=== PATIENT | male | born 1950 | race Hispanic/Latino ===

== ENCOUNTER 2020-08-19 18:21 | Inpatient (IN) | payer OTHER, SELFPAY ==
--- NOTE | 2020-08-19 19:34 | RAD REPORT ---
EXAM DESCRIPTION: CT - CTHCSPWOC - 08/19/2020 7:23 pm CLINICAL HISTORY: Trauma, head and neck injury. fall COMPARISON: <Comparisons> TECHNIQUE: Axial 5 mm thick images of the head were obtained. Axial 2 mm thick images of the cervical spine were obtained with sagittal and coronal reconstruction images generated and reviewed. All CT scans are performed using dose optimization technique as appropriate and may include automated exposure control or mA/KV adjustment according to patient size. FINDINGS: CT HEAD WITHOUT CONTRAST: No acute hemorrhage, hydrocephalus or extra-axial collection is identified.Mild generalized brain atr ophy is present with moderate periventricular and deep white matter chronic microvascular ischemic ch anges.No areas of brain edema or midline shift. The paranasal sinuses and mastoids are clear.The calvarium is intact. CT CERVICAL SPINE WITHOUT CONTRAST: No fracture or subluxation.3-4 mm degenerative anterolisthesis C4 on 5 is present. Disc thinning with posterior osteophyte is present at C5-6 C6-7. No prevertebral soft tissues swelling is identified. Heavy atherosclerosis of both carotid bulbs noted. 4 cm cavitary lesion is noted in the right apex. IMPRESSION: No acute intracranial or cervical spine findings. Moderate mid and lower cervical degenerative changes. 4 cm cavitary lesion in the right apex. This can be seen cases of malignancy or prior tuberculosis in fection.
[2020-08-19 20:15] LABS: Absolute Lymphocytes (CBC) 0.5 K/uL (0.7-4.9); Basophils % 0.8 % (0-1.3); Hematocrit 28.5 % (39.6-49.0); Lymphocytes % 16.6 % (15.3-44.8)
[2020-08-19 20:19] LABS: Barbiturates NEGATIVE (NEGATIVE); Benzodiazepines NEGATIVE (NEGATIVE); Cocaine NEGATIVE (NEGATIVE); METHAMPHETAM NEGATIVE (NEGATIVE); Methadone NEGATIVE (NEGATIVE); Opiates NEGATIVE (NEGATIVE); Phencyclidine NEGATIVE (NEGATIVE); THC Cannibis NEGATIVE (NEGATIVE)
[2020-08-19 20:19] LABS: Protime INR 1.21
[2020-08-19 20:36] LABS: Urine Blood NEGATIVE (NEG); Urine Glucose NEGATIVE (NEG); Urine Specific Gravity 1.025 (1.005-1.030)
[2020-08-19 20:37] LABS: Urine Protein NEGATIVE (NEG); Urine pH 5.5 (5.0-7.0)
[2020-08-19 21:11] LABS: ALT/SGPT 88 U/L (12-78); AST/SGOT 76 U/L (15-37); Albumin 3.1 g/dL (3.4-5.0); Alkaline Phosphatase 206 U/L (45-117); BUN Blood Urea Nitrogen 24 mg/dL (7-18); Bicarbonate 21 mmol/L (21-32); Bilirubin Direct 0.6 mg/dL (0-0.2); Bilirubin Total 1.2 mg/dL (0.2-1.0); Glucose Level 96 mg/dL (74-106); Potassium 3.7 mmol/L (3.5-5.1); Protein, Total 7.9 g/dL (6.4-8.2); Sodium Level 145 mmol/L (136-145)
[2020-08-19] MEDS ORDERED: NA CHLORIDE 0.9% 1,000 ML ONE (21:49)
[2020-08-19 21:56] LABS: Troponin (Emerg Dept Use Only) < 0.02 ng/mL (0.0-0.045)
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
[2020-08-20] MEDS ORDERED: LACTULOSE 20 GM/30 ML UCUP ONE (03:30)
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
[2020-08-20 04:56] VITALS: BMI 22.6
[2020-08-20] MEDS ORDERED: ONDANSETRON 4 MG/2 ML VIAL IV PRN (05:04)
[2020-08-20] MEDS: NA CHLORIDE 0.9% 1,000 ML IV SCH ×2 (05:04→08:38)
--- NOTE | 2020-08-20 07:30 | RAD REPORT ---
EXAM DESCRIPTION: Mercedes Single View08/19/2020 10:14 pm CLINICAL HISTORY: Chest pain COMPARISON: none FINDINGS: 5 centimeter cavitary mass right upper lobe. Left lung appears clear of acute infiltrate. The heart is normal size IMPRESSION: 5 centimeter cavitary mass right upper lobe may represent neoplasm or infection
[2020-08-20] MEDS: LACTULOSE 20 GM/30 ML UCUP PO SCH ×3 (08:39→21:19)
[2020-08-20] MEDS: FOLIC ACID 1 MG TABLET PO SCH (08:39)
[2020-08-20] MEDS ORDERED: ENOXAPARIN 40 MG/0.4 ML SQ SCH (09:00)
[2020-08-20] MEDS ORDERED: PNEUMOCOCCAL VACCINE 0.5 ML IMVAC ONE (09:00)
[2020-08-20] MEDS ORDERED: INFLUENZA VACCINE (for 3y+) 0.5 ML DOSE IMVAC ONE (09:00)
[2020-08-20 09:45] LABS: Absolute Lymphocytes (CBC) 0.5 K/uL (0.7-4.9); Basophils % 0.8 % (0-1.3); Hematocrit 30.2 % (39.6-49.0); Lymphocytes % 19.3 % (15.3-44.8); Protime INR 1.16; RBC Red Blood Cell Count 3.06 M/uL (4.33-5.43)
--- NOTE | 2020-08-20 10:58 | EKG ---
Test Date: 2020-08-19 Test Time: 19:14:09 Abrasive Wheel Molder: FERN MEASUREMENT RESULTS: Intervals: Rate: 96 CA: 136 QRSD: 90 QT: 370 QTc: 467 [place]: P: 36 CA: 136 QRS: 41 T: 6 INTERPRETIVE STATEMENTS: Normal sinus rhythm Normal ECG No previous ECG available for comparison Electronically Signed On 08-20-20 10:56:27 TEXTILE CONVERTER by Fredrick Johnson
[2020-08-20 12:05] LABS: Albumin 3.2 g/dL (3.4-5.0); Bilirubin Total 1.3 mg/dL (0.2-1.0); Ferritin 375.7 ng/mL (26-388); Folic Acid, (Folate) 15.7 ng/mL (3.1-17.5); Magnesium 2.3 mg/dL (1.8-2.4); Phosphorus 3.4 mg/dL (2.5-4.9); Potassium 3.5 mmol/L (3.5-5.1); Protein, Total 8.1 g/dL (6.4-8.2); Thyroid Stimulating Hormone 3.31 uIU/mL (0.360-3.740)
--- NOTE | 2020-08-20 14:16 | P.PN ---
Subjective Date of Service: 08/20/20 Primary Care Provider: None Chief Complaint: Toxic metabolic encephalopathy Subjective: Other (Patient overall stable. Patient is a poor historian. Patient is homeless.) Physical Examination - Vital Signs Temperature: 98.7 F Blood Pressure: 140/67 Pulse: 82 Respirations: 16 Pulse Ox (%): 97 - Physical Exam General: Alert, Cooperative, Disheveled, Other (Patient is homeless. He appears not well kept.) HEENT: Atraumatic Neck: Supple Respiratory: Clear to auscultation bilaterally Cardiovascular: Normal pulses, Regular rate/rhythm Gastrointestinal: No tenderness, No masses, No rebound, No guarding Integumentary: Tenderness/swelling (1 plus edema to LE) Neurological: Normal speech, Normal strength at 5/5 x4 extr, Normal tone - Studies Laboratory Data (last 24 hrs) 08/19/20 19:40: PT 14.2 H, INR 1.21, APTT 28.7 08/19/20 19:40: Total Bilirubin Cancelled, AST Cancelled, ALT Cancelled, Alkaline Phosphatase Cancelled 08/19/20 19:40: WBC 2.9 L, Hgb 10.2 L, Hct 28.5 L, Plt Count 94 L 08/19/20 19:40: Sodium 145, Potassium 3.7, BUN 24 H, Creatinine 0.97, Glucose 96, Total Bilirubin 1.2 H, AST 76 H, ALT 88 H, Alkaline Phosphatase 206 H Medications List Reviewed: Yes Assessment & Plan Discharge Plan: Home Plan to discharge in: Greater than 2 days Physician Review Additional Text: Assessment Toxic metabolic/hepatic encephalopathy secondary to alcoholic cirrhosis of the liver 5.5 x 3.1 x 3.0 cm cavitary lesion in the apex of the right lung with additional satellite nodules Pancytopenia likely secondary to Cirrhosis Circumferential thickening of the ascending colon Large fat containing right inguinal hernia with right hydrocele Plan Toxic metabolic/hepatic encephalopathy secondary to alcoholic cirrhosis of the liver: Continue lactulose. Will Dc IV fluids. Will provide Lasix. Will need to monitor for DTs. Provide DVT prophylaxis. Will place parameters. Patient with multiple medical issues including cavitary lesion to the right lung likely TB. This will need to be further evaluated. Will continue monitor closely. Will discuss with 7th grade social studies teacher about plan of care. Order physical therapy. 5.5 x 3.1 x 3.0 cm cavitary lesion in the apex of the right lung with additional satellite nodules: Case discussed with pulmonology. Patient likely has TB. Workup for TB in process. HIV, hepatitis panel pending. Will monitor closely. Patient placed in isolation. Pancytopenia likely secondary to Cirrhosis: Continue to monitor CBC, transfuse for hemoglobin less than 7. No signs of active bleeding at this time. Circumferential thickening of the ascending colon: Given additional constellation of findings on CT scan and lack of abdominal pain or any acute symptoms this is likely malignant. No acute symptoms noted, patient will need to have colonoscopy on an outpatient basis for further evaluation. No abdominal complaints noted. Will monitor this closely. Large fat containing right inguinal hernia with right hydrocele: Stable at this time. Patient is aware that he has a hernia, states that this is not causing any pain. CT states no signs of incarceration or bowel involvement in the hernia defect. Continue to monitor. Time Spent Managing Pts Care (In Minutes): 55
[2020-08-20] MEDS ORDERED: POTASSIUM CL SA 10 MEQ TAB PO ONE (14:42)
--- NOTE | 2020-08-20 15:45 | P.PN ---
Subjective Date of Service: 08/20/20 Primary Care Provider: None Chief Complaint: Toxic metabolic encephalopathy Physical Examination - Vital Signs Temperature: 98.7 F Blood Pressure: 140/67 Pulse: 82 Respirations: 16 Pulse Ox (%): 97 - Studies Laboratory Data (last 24 hrs) 08/19/20 19:40: PT 14.2 H, INR 1.21, APTT 28.7 08/19/20 19:40: Total Bilirubin Cancelled, AST Cancelled, ALT Cancelled, Alkaline Phosphatase Cancelled 08/19/20 19:40: WBC 2.9 L, Hgb 10.2 L, Hct 28.5 L, Plt Count 94 L 08/19/20 19:40: Sodium 145, Potassium 3.7, BUN 24 H, Creatinine 0.97, Glucose 96, Total Bilirubin 1.2 H, AST 76 H, ALT 88 H, Alkaline Phosphatase 206 H Medications List Reviewed: Yes Assessment & Plan Physician Review Additional Text: Assessment Toxic metabolic/hepatic encephalopathy secondary to alcoholic cirrhosis of the liver 5.5 x 3.1 x 3.0 cm cavitary lesion in the apex of the right lung with additional satellite nodules Pancytopenia likely secondary to Cirrhosis Circumferential thickening of the ascending colon Large fat containing right inguinal hernia with right hydrocele Plan Toxic metabolic/hepatic encephalopathy secondary to alcoholic cirrhosis of the liver: Continue lactulose. Will Dc IV fluids. Will provide Lasix. Will need to monitor for DTs. Provide DVT prophylaxis. Will place parameters. Patient with multiple medical issues including cavitary lesion to the right lung likely TB. This will need to be further evaluated. Will continue monitor closely. Will discuss with perinatal social worker about plan of care. Order physical therapy. 5.5 x 3.1 x 3.0 cm cavitary lesion in the apex of the right lung with additional satellite nodules: Case discussed with pulmonology. Patient likely has TB. Workup for TB in process. HIV, hepatitis panel pending. Will monitor closely. Patient placed in isolation. Pancytopenia likely secondary to Cirrhosis: Continue to monitor CBC, transfuse for hemoglobin less than 7. No signs of active bleeding at this time. Circumferential thickening of the ascending colon: Given additional constellation of findings on CT scan and lack of abdominal pain or any acute symptoms this is likely malignant. No acute symptoms noted, patient will need to have colonoscopy on an outpatient basis for further evaluation. No abdominal complaints noted. Will monitor this closely. Large fat containing right inguinal hernia with right hydrocele: Stable at this time. Patient is aware that he has a hernia, states that this is not causing any pain. CT states no signs of incarceration or bowel involvement in the h ernia defect. Continue to monitor.
[2020-08-20] MEDS ORDERED: FUROSEMIDE 40 MG TABLET PO SCH (17:00)
[2020-08-20] MEDS: FAMOTIDINE 20 MG TAB PO SCH (21:19)
[2020-08-21 07:42] LABS: Absolute Lymphocytes (CBC) 0.7 K/uL (0.7-4.9); Basophils % 1.3 % (0-1.3); Hematocrit 29.3 % (39.6-49.0); Lymphocytes % 25.3 % (15.3-44.8); MPV 8.3 fL (7.6-11.3); RBC Red Blood Cell Count 2.97 M/uL (4.33-5.43)
[2020-08-21 07:57] LABS: ALT/SGPT 96 U/L (12-78); AST/SGOT 91 U/L (15-37); Albumin 2.9 g/dL (3.4-5.0); Alkaline Phosphatase 129 U/L (45-117); BUN Blood Urea Nitrogen 13 mg/dL (7-18); Bicarbonate 22 mmol/L (21-32); Bilirubin Total 1.5 mg/dL (0.2-1.0); Glucose Level 93 mg/dL (74-106); Magnesium 2.1 mg/dL (1.8-2.4); Phosphorus 3.4 mg/dL (2.5-4.9); Potassium 3.7 mmol/L (3.5-5.1); Protein, Total 7.4 g/dL (6.4-8.2); Sodium Level 142 mmol/L (136-145)
[2020-08-21 08:48] LABS: Anisocytosis 1+; Blood Morphology Comment NOTED (NOT SEEN); Burr Cells FEW; Macrocytosis 1+; Platelet Estimate DECR; White Blood Cell Scan OK (OK)
[2020-08-21] MEDS ORDERED: FUROSEMIDE 40 MG TABLET PO SCH (09:00)
--- NOTE | 2020-08-21 09:02 | P.PN ---
Subjective Date of Service: 08/21/20 Primary Care Provider: None Chief Complaint: Toxic metabolic encephalopathy Subjective: Other (Patient feels better.) Physical Examination - Vital Signs Temperature: 97.8 F Blood Pressure: 124/58 Pulse: 80 Respirations: 18 Pulse Ox (%): 100 - Physical Exam General: Alert, In no apparent distress, Oriented x3, Cooperative, Disheveled HEENT: Atraumatic Neck: Supple Respiratory: Clear to auscultation bilaterally, Normal air movement Cardiovascular: Normal pulses, Regular rate/rhythm Gastrointestinal: Normal bowel sounds, Soft and benign, Non-distended, No tenderness, No masses, No rebound, No guarding Neurological: Normal speech, Normal strength at 5/5 x4 extr, Normal tone, Normal affect - Studies Laboratory Data (last 24 hrs) 08/19/20 19:40: Sodium 145, Potassium 3.7, BUN 24 H, Creatinine 0.97, Glucose 96, Total Bilirubin 1.2 H, AST 76 H, ALT 88 H, Alkaline Phosphatase 206 H Medications List Reviewed: Yes Assessment & Plan Discharge Plan: Home Plan to discharge in: Greater than 2 days Physician Review Additional Text: Assessment Toxic metabolic/hepatic encephalopathy secondary to alcoholic cirrhosis of the liver 5.5 x 3.1 x 3.0 cm cavitary lesion in the apex of the right lung with additional satellite nodules Pancytopenia likely secondary to Cirrhosis Circumferential thickening of the ascending colon Large fat containing right inguinal hernia with right hydrocele Plan Toxic metabolic/hepatic encephalopathy secondary to alcoholic cirrhosis of the liver: Patient appears to be back to his baseline. Continue lactulose to maintain 2-3 bowel movements per day. Patient on Aldactone. Continue DVT prophylaxis. Will monitor for DTs. Patient with cavitary lesion. Patient currently being evaluated for TB. Patient in isolation. Will discuss further with pulmonology. Will discuss with pulmonology to determine discharge planning. Patient may need to be in the hospital until TB workup complete. Patient is high risk for TB. Patient will need to see GI as an outpatient to further address. Will need to discuss with social services assistant about plan of care and options at discharge. Patient is homeless. 5.5 x 3.1 x 3.0 cm cavitary lesion in the apex of the right lung with additional satellite nodules: will discuss case further with pulmonology. Patient currently being worked up for TB. May need to remain in the hospital on tell workup complete. Patient remains in respiratory isolation. Awaiting other lab. Pancytopenia likely secondary to Cirrhosis: Continue to monitor CBC, transfuse for hemoglobin less than 7. No signs of active bleeding at this time. Circumferential thickening of the ascending colon: No abdominal pain noted. No nausea and vomiting. Patient will require colonoscopy as an outpatient to further evaluate. No abnormalities. Patient will need GI evaluation as an outpatient to further address. Large fat containing right inguinal hernia with right hydrocele: Stable at this time. Patient is aware that he has a hernia, states that this is not causing any pain. CT states no signs of incarceration or bowel involvement in the hernia defect. Continue to monitor. Time Spent Managing Pts Care (In Minutes): 55
[2020-08-21] MEDS: ENOXAPARIN 40 MG/0.4 ML SQ SCH (09:24)
[2020-08-21] MEDS: LACTULOSE 20 GM/30 ML UCUP PO SCH ×3 (09:24→21:33)
[2020-08-21] MEDS: FAMOTIDINE 20 MG TAB PO SCH ×2 (09:24→21:32)
[2020-08-21] MEDS: FOLIC ACID 1 MG TABLET PO SCH (09:25)
[2020-08-21] MEDS: SPIRONOLACTONE 25 MG TABLET PO SCH (09:25)
--- NOTE | 2020-08-21 11:02 | RAD REPORT ---
EXAM DESCRIPTION: CT - Chest Abdomen Pelvis W Cont - 08/20/2020 6:56 am CLINICAL HISTORY: Abnormal chest x-ray. Abnormal liver function tests. COMPARISON: None. TECHNIQUE: Axial CT imaging of the chest, abdomen and pelvis performed without intravenous contrast. Reformatted coronal and sagittal images obtained. This exam was performed according to our departmental dose-optimization program which includes automa lori exposure control, adjustment of the mA and/or kV according to patient size and/or use of iterativ e reconstruction technique FINDINGS: CHEST HEART/VESSELS: Heart is normal in size. No pericardial fluid. Normal caliber thoracic aorta. T here is mild aorta atherosclerosis. Normal branch pattern of the arch vessels. Normal caliber francesco n pulmonary artery. There are significant coronary artery calcifications. MEDIASTINUM AND TL: Scattered lymph nodes throughout the mediastinum. Enlarged subcarinal node i s 1.9 x 1.4 x 2.9 cm. No filling defect within the central airways. There is an 8 mm air-filled o utpouching along the right upper tracheal wall at the thoracic inlet compatible with a tiny tracheoce le. LUNGS/PLEURA: There is a thick-walled irregular 5.5 x 3.1 x 3.0 cm mass in the right apex with a ranjit tral air-filled collection and an air-fluid level compatible with cavitation. There is adjacent claudia undglass attenuation anteriorly with a small collection of peripheral satellite nodules and minimal a djacent pleural thickening. The right upper lobe bronchi extend into this collection. There are s everal linear or nodular densities within the inferior aspect of the right middle lobe. Very faint groundglass peribronchial opacities within the anterior left upper lobe. Left lower lobe and right lower lobe subpleural atelectasis noted. There is no pneumothorax. No pleural fluid seen. There is no pneumothorax. CHEST WALL/SOFT TISSUES: Unremarkable thyroid. There is no axillary lymphadenopathy. The sternum is intact. There is mild thoracic spondylosis. There are several old posterior inferior right ri b fractures. ABDOMEN: LIVER/GALLBLADDER: Normal liver size. Slight hepatic nodularity due to cirrhosis. No mass or prabhakar iary dilatation. Gallbladder is contracted. Minimal pericholecystic edema. No gallstones. SPLEEN/PANCREAS: There is marked splenic enlargement, greater than 22 cm. Splenic index is 3386, n ormal less than 480. There is no perisplenic free fluid. There are numerous varices adjacent to t he gastric cardia. The pancreas appears normal. KIDNEYS/ADRENAL GLANDS: Normal adrenal glands. Normal right and left renal enhancement. There is mass effect upon the left kidney by the splenic enlargement. RETROPERITONEAL VESSELS/NODES: Significant abdominal aorta atherosclerosis. No aneurysm. Normal caliber inferior vena cava. Mesenteric vessels are well-opacified. BOWEL: There are numerous varices within the superior wall of the gastric cardia. Remaining stomac h appears normal. Small bowel loops are of normal caliber. Appendix is normal in the right lower quadrant. There is circumferential thickening of the ascending colon diffusely. Unremarkable deisi ining colon. MESENTERY/PERITONEUM: No ascites. There is no mesenteric adenopathy. There is mild central mesen teric edema. PELVIS: BLADDER/GENITAL ORGANS: Normal bladder. The prostate is 5.0 x 3.9 x 4.3 cm cyst. Dystrophic calc ification. No pelvic free fluid. PERITONEUM: There is a large fat-containing right inguinal hernia extending into the superior aspect of the right scrotal sac, approximately 10.4 x 4.1 x 5.1 cm with a moderate right hydrocele, not ful ly imaged. BONES AND SOFT TISSUES: There is mild degenerative anterior subluxation of L4 on L5 with significant left facet arthropathy. Intact bony pelvis. Normal hips. Significant vascular calcifications w ithin the right and left femoral vessels. IMPRESSION: 1. Thick-walled right apical cavitary mass with several satellite nodules. Mild asso ciated mediastinal lymphadenopathy. Differential includes tuberculosis, fungal disease, cavitary ne oplasm. 2. Faint peribronchial pneumonitis within the left upper lobe. Right middle lobe atelectasis with possible associated pneumonitis. Bilateral lower lobe atelectasis. Imaging features can be seen with viral pneumonia, though are nonspecific and can occur with a variet y of infectious and noninfectious processes. PneInd Reference: https://pubs.rsna.org/doi/full/10.1148/ryct.[email or web address] 3. Hepatic cirrhosis with massive splenomegaly and gastric varices indicative of portal hypertensio n. Portal vein appears patent on today's exam. 4. Mild pericholecystic edema is likely due to adjacent liver disease rather than acalculous cholec ystitis. No biliary dilatation. 5. Diffuse colitis involving the ascending colon. The possibility of infiltrative malignancy is a lso within the differential. Follow-up is warranted. 6. Large fat-containing right inguinal hernia with a right hydrocele, not fully imaged. No eviden ce of incarceration. No bowel involvement in the hernia defect. Electronically signed by: Sybil Castro DO 08/20/2020 1:07 AM PLATE PUT IN WORKER Due to temporary technical issues with the PACS/Fluency reporting system, reports are being signed by the in house radiologist without review as a courtesy to ensure prompt reporting. The interpreting r adiologist is fully responsible for the content of the report.
[2020-08-21 11:29] LABS: Protime INR 1.23
--- NOTE | 2020-08-21 11:39 | P.CNS ---
Date of Consult: 08/21/20 Reason for Consult: Cavitary pneumonia Primary Care Provider: None Chief Complaint: Cavitary pneumonia History of Present Illness: Patient is 69 years of age homeless man was found in the ditch by the police does not quite remember the incidence start drinking about a month ago history of cirrhosis of the liver pancytopenia he is feeling fine has some weight loss and memory loss Allergies No Known Allergies Allergy (Unverified 08/20/20 05:04) Home Medications: NK [No Home Meds] 08/20/20 - Past Medical/Surgical History Diabetic: No -: No known medical issues -: None Psychosocial/ Personal History: Pt is homeless, unemployed, currently staying in senior living. - Social History Alcohol use: No CD- Drugs: No Caffeine use: Yes Place of Residence: [facility] Review of Systems General: Weakness Physical Examination Temp Pulse Resp BP Pulse Ox 97.8 F 80 18 124/58 L 100 08/21/20 09:02 08/21/20 09:25 08/21/20 09:02 08/21/20 09:25 08/21/20 09:02 General: Alert, Oriented x3 Respiratory: Clear to auscultation bilaterally Cardiovascular: No edema, Regular rate/rhythm - Problems (1) Cavitary pneumonia Current Visit: Yes Status: Acute Plan: Patient is 69 years of age admitted with right upper lobe cavitary pneumonia patient has cirrhosis of the liver quit drinking about a month ago plays a some weight loss differential diagnosis includes cavitating tumor versus granulomatous lung disease the check sputum for AFB reason able to cough up will plan to do a bronchoscopy to rule out tuberculosis he has cirrhosis of the liver with hepatosplenomegaly chemistries reviewed pancytopenia vital signs otherwise stable oxygenation satisfactory HIV an antibody screen and pending meanwhile I had I have added Augmentin and doxycycline for the possibility of an infection
[2020-08-21] MEDS: DOXYCYCLINE 100 MG CAP PO SCH ×2 (12:45→21:32)
[2020-08-21] MEDS: AMOX/K CLAV 500 MG TAB PO SCH ×2 (12:45→21:32)
[2020-08-21] MEDS: THIAMINE HCL 100 MG TABLET PO SCH (12:45)
[2020-08-22] MEDS: FOLIC ACID 1 MG TABLET PO SCH (08:26)
[2020-08-22] MEDS: AMOX/K CLAV 500 MG TAB PO SCH ×2 (08:26→21:38)
[2020-08-22] MEDS: LACTULOSE 20 GM/30 ML UCUP PO SCH ×3 (08:26→21:38)
[2020-08-22] MEDS: DOXYCYCLINE 100 MG CAP PO SCH ×2 (08:26→21:39)
[2020-08-22] MEDS: SPIRONOLACTONE 25 MG TABLET PO SCH (08:27)
[2020-08-22] MEDS: FAMOTIDINE 20 MG TAB PO SCH ×2 (08:27→21:38)
[2020-08-22] MEDS: ENOXAPARIN 40 MG/0.4 ML SQ SCH (08:27)
[2020-08-22] MEDS: THIAMINE HCL 100 MG TABLET PO SCH (08:29)
--- NOTE | 2020-08-22 12:18 | P.PN ---
Subjective Date of Service: 08/22/20 Primary Care Provider: None Chief Complaint: Cavitary pneumonia Subjective: Improving, Doing well Physical Examination - Vital Signs Temperature: 99.1 F Blood Pressure: 121/58 Pulse: 74 Respirations: 18 Pulse Ox (%): 97 - Physical Exam General: Alert, In no apparent distress, Oriented x3, Cooperative HEENT: Atraumatic Neck: Supple Respiratory: Clear to auscultation bilaterally, Normal air movement Cardiovascular: Normal pulses, Regular rate/rhythm Gastrointestinal: Normal bowel sounds, No tenderness, No masses, No rebound, No guarding Musculoskeletal: No erythema, No tenderness, No warmth Integumentary: No tenderness/swelling, No erythema, No warmth, No cyanosis Neurological: Normal speech, Normal strength at 5/5 x4 extr, Normal tone, Normal affect - Studies Medications List Reviewed: Yes Assessment & Plan Discharge Plan: Home Plan to discharge in: 48 Hours Physician Review Additional Text: Assessment Toxic metabolic/hepatic encephalopathy secondary to alcoholic cirrhosis of the liver 5.5 x 3.1 x 3.0 cm cavitary lesion in the apex of the right lung with additional satellite nodules Pancytopenia likely secondary to Cirrhosis Circumferential thickening of the ascending colon Large fat containing right inguinal hernia with right hydrocele Plan Toxic metabolic/hepatic encephalopathy secondary to alcoholic cirrhosis of the liver: Patient appears to be back to his baseline. Continue lactulose to maintain 2-3 bowel movements per day. Patient on Aldactone. Continue DVT prophylaxis. Will monitor for DTs. Patient with cavitary lesion. Patient currently being evaluated for TB. Patient in isolation. Awaiting on sputum culture results. Patient may need to be in the hospital until TB workup complete. Patient is high risk for TB. Patient will need to see GI as an outpatient to further address. Will need to discuss with social work specialist about plan of care and options at discharge. Patient is homeless. 5.5 x 3.1 x 3.0 cm cavitary lesion in the apex of the right lung with additional satellite nodules: Await results on sputum culture. Pulmonology has patient on antibiotic therapy. Await further recommendations from pulmonology. Plan a care from pulmonology will determine on when patient can be best sent home. Pancytopenia likely secondary to Cirrhosis: Continue to monitor CBC, transfuse for hemoglobin less than 7. No signs of active bleeding at this time. Circumferential thickening of the ascending colon: No abdominal pain noted. No nausea and vomiting. Patient will require colonoscopy as an outpatient to further evaluate. No abnormalities. Patient will need GI evaluation as an outpatient to further address. Large fat containing right inguinal hernia with right hydrocele: Stable at this time. Patient is aware that he has a hernia, states that this is not causing any pain. CT states no signs of incarceration or bowel involvement in the hernia defect. Continue to monitor. Time Spent Managing Pts Care (In Minutes): 55
[2020-08-22] MEDS: ACETAMINOPHEN 500 MG TAB PO PRN (21:55)
--- NOTE | 2020-08-23 08:06 | P.PN ---
Subjective Date of Service: 08/23/20 Primary Care Provider: None Chief Complaint: Cavitary pneumonia Subjective: Doing well Physical Examination - Vital Signs Temperature: 98.0 F Blood Pressure: 136/69 Pulse: 86 Respirations: 16 Pulse Ox (%): 100 - Physical Exam General: Alert, In no apparent distress, Oriented x3, Cooperative HEENT: Atraumatic Neck: Supple Respiratory: Clear to auscultation bilaterally, Normal air movement Cardiovascular: Normal pulses, Regular rate/rhythm Gastrointestinal: Normal bowel sounds, No masses, No rebound, No guarding Integumentary: No tenderness/swelling, No erythema, No warmth, No cyanosis Neurological: Normal speech, Normal strength at 5/5 x4 extr, Normal tone, Normal affect - Studies Medications List Reviewed: Yes Assessment & Plan Discharge Plan: Home Plan to discharge in: 24 Hours Physician Review Additional Text: Assessment Toxic metabolic/hepatic encephalopathy secondary to alcoholic cirrhosis of the liver 5.5 x 3.1 x 3.0 cm cavitary lesion in the apex of the right lung with additional satellite nodules Pancytopenia likely secondary to Cirrhosis Circumferential thickening of the ascending colon Large fat containing right inguinal hernia with right hydrocele Plan Toxic metabolic/hepatic encephalopathy secondary to alcoholic cirrhosis of the liver: This has resolved. Patient back to baseline. Continue lactulose to maintain 2-3 bowel movements per day. Patient also on Aldactone. Await sputum culture results to further evaluate cavitary lesion of the right lung. Patient on antibiotics empirically. TB also being evaluated. Patient high risk for tuberculosis. If sputum unremarkable then patient may be able to be discharge as early as tomorrow. Will discuss further with pulmonology. Continue current medications. Patient will need GI evaluation as an outpatient to continue to follow his alcoholic cirrhosis. Patient reports he is no longer drinking. I will turn the service over to the hospitalist team tomorrow. I will go plan of care with him. 5.5 x 3.1 x 3.0 cm cavitary lesion in the apex of the right lung with additional satellite nodules: Await results on sputum culture. Pulmonology has patient on antibiotic therapy empirically. Await further recommendations from pulmonology. Plan a care from pulmonology will determine on when patient can be best sent home. Pancytopenia likely secondary to Cirrhosis: Overall stable. Monitor closely.. Circumferential thickening of the ascending colon: No abdominal pain noted. No nausea and vomiting. Patient will require colonoscopy as an outpatient to further evaluate. No abnormalities. Patient will need GI evaluation as an outpatient to further address. Large fat containing right inguinal hernia with right hydrocele: Stable at this time. Patient is aware that he has a hernia, states that this is not causing any pain. CT states no signs of incarceration or bowel involvement in the hernia defect. Continue to monitor. Time Spent Managing Pts Care (In Minutes): 55
[2020-08-23] MEDS: AMOX/K CLAV 500 MG TAB PO SCH ×2 (09:13→20:46)
[2020-08-23] MEDS: FAMOTIDINE 20 MG TAB PO SCH ×2 (09:13→20:46)
[2020-08-23] MEDS: LACTULOSE 20 GM/30 ML UCUP PO SCH ×4 (09:13→20:58)
[2020-08-23] MEDS: DOXYCYCLINE 100 MG CAP PO SCH ×2 (09:13→20:46)
[2020-08-23] MEDS: FOLIC ACID 1 MG TABLET PO SCH (09:14)
[2020-08-23] MEDS: SPIRONOLACTONE 25 MG TABLET PO SCH (09:14)
[2020-08-23] MEDS: ENOXAPARIN 40 MG/0.4 ML SQ SCH (09:14)
[2020-08-23] MEDS: THIAMINE HCL 100 MG TABLET PO SCH (09:14)
[2020-08-24] MEDS: AMOX/K CLAV 500 MG TAB PO SCH ×2 (10:01→22:21)
[2020-08-24] MEDS: THIAMINE HCL 100 MG TABLET PO SCH (10:02)
[2020-08-24] MEDS: FOLIC ACID 1 MG TABLET PO SCH (10:02)
[2020-08-24] MEDS: DOXYCYCLINE 100 MG CAP PO SCH ×2 (10:02→22:20)
[2020-08-24] MEDS: LACTULOSE 20 GM/30 ML UCUP PO SCH ×3 (10:02→22:20)
[2020-08-24] MEDS: SPIRONOLACTONE 25 MG TABLET PO SCH (10:03)
[2020-08-24] MEDS: FAMOTIDINE 20 MG TAB PO SCH ×2 (10:03→22:20)
[2020-08-24] MEDS: ENOXAPARIN 40 MG/0.4 ML SQ SCH (10:03)
[2020-08-24 17:40] LABS: HIV AG/AB 4TH GEN Non-reactive (Non-reactive)
[2020-08-25 05:52] LABS: Absolute Lymphocytes (CBC) 0.7 K/uL (0.7-4.9); Basophils % 1.3 % (0-1.3); MPV 8.2 fL (7.6-11.3); RBC Red Blood Cell Count 3.23 M/uL (4.33-5.43)
[2020-08-25 06:05] LABS: Albumin 2.8 g/dL (3.4-5.0); Bilirubin Total 1.3 mg/dL (0.2-1.0); Magnesium 2.6 mg/dL (1.8-2.4); Potassium 4.5 mmol/L (3.5-5.1); Protein, Total 7.6 g/dL (6.4-8.2)
[2020-08-25] MEDS: LACTULOSE 20 GM/30 ML UCUP PO SCH ×3 (09:00→19:50)
[2020-08-25] MEDS: FAMOTIDINE 20 MG TAB PO SCH ×2 (09:45→19:50)
[2020-08-25] MEDS: SPIRONOLACTONE 25 MG TABLET PO SCH (09:45)
[2020-08-25] MEDS: DOXYCYCLINE 100 MG CAP PO SCH ×2 (09:45→19:50)
[2020-08-25] MEDS: ENOXAPARIN 40 MG/0.4 ML SQ SCH (09:46)
[2020-08-25] MEDS: AMOX/K CLAV 500 MG TAB PO SCH ×2 (09:46→19:49)
[2020-08-25] MEDS: FOLIC ACID 1 MG TABLET PO SCH (09:46)
[2020-08-25] MEDS: THIAMINE HCL 100 MG TABLET PO SCH (09:46)
[2020-08-26] MEDS: DOXYCYCLINE 100 MG CAP PO SCH ×2 (08:25→21:00)
[2020-08-26] MEDS: AMOX/K CLAV 500 MG TAB PO SCH ×2 (08:25→21:00)
[2020-08-26] MEDS: THIAMINE HCL 100 MG TABLET PO SCH (08:25)
[2020-08-26] MEDS: ENOXAPARIN 40 MG/0.4 ML SQ SCH (08:25)
[2020-08-26] MEDS: LACTULOSE 20 GM/30 ML UCUP PO SCH ×3 (08:26→21:00)
[2020-08-26] MEDS: FOLIC ACID 1 MG TABLET PO SCH (08:26)
[2020-08-26] MEDS: FAMOTIDINE 20 MG TAB PO SCH ×2 (08:26→21:00)
[2020-08-26] MEDS: SPIRONOLACTONE 25 MG TABLET PO SCH (08:34)
[2020-08-26 19:58] LABS: HBsAG Nonreactive (Nonreactive)
[2020-08-27] MEDS: SPIRONOLACTONE 25 MG TABLET PO SCH (08:26)
[2020-08-27] MEDS: AMOX/K CLAV 500 MG TAB PO SCH ×2 (08:26→19:41)
[2020-08-27] MEDS: THIAMINE HCL 100 MG TABLET PO SCH (08:26)
[2020-08-27] MEDS: ENOXAPARIN 40 MG/0.4 ML SQ SCH (08:26)
[2020-08-27] MEDS: FOLIC ACID 1 MG TABLET PO SCH (08:26)
[2020-08-27] MEDS: FAMOTIDINE 20 MG TAB PO SCH ×2 (08:26→19:42)
[2020-08-27] MEDS: LACTULOSE 20 GM/30 ML UCUP PO SCH ×3 (08:26→19:42)
[2020-08-27] MEDS: DOXYCYCLINE 100 MG CAP PO SCH ×2 (08:26→19:41)
--- NOTE | 2020-08-27 10:16 | P.PN ---
Subjective Date of Service: 08/24/20 Subjective: No new changes, No C/O voiced Review of Systems 10-point ROS is otherwise unremarkable Physical Examination - Vital Signs Temperature: 97.2 F Blood Pressure: 121/69 Pulse: 76 Respirations: 19 Pulse Ox (%): 100 - Physical Exam General: Alert, In no apparent distress HEENT: Atraumatic, PERRLA, EOMI Neck: Supple, JVD not distended Respiratory: Diminished, Crackles/rales Cardiovascular: Regular rate/rhythm, Normal S1 S2 Gastrointestinal: Normal bowel sounds, No tenderness Musculoskeletal: No tenderness Integumentary: No rashes Neurological: Normal speech, Normal tone, Normal affect Lymphatics: No axilla or inguinal lymphadenopathy - Studies Medications List Reviewed: Yes Assessment & Plan - Problems (Diagnosis) (1) Cavitary pneumonia Current Visit: Yes Status: Acute - Plan 1. Continue with IV antibiotics 2. Awaiting sputum and blood culture 3. Repeat chest x-ray 4. Appreciate pulmonary consultation 5. Awaiting AFB results 6. O2 per protocol and nebulizer treatments as needed 7. GI and DVT prophylaxis - Advance Directives Does patient have a Living Will: No Does patient have a Durable POA for Healthcare: No
--- NOTE | 2020-08-27 10:18 | P.PN ---
Subjective Date of Service: 08/25/20 No new changes. Awaiting AFB results. Patient's quite apparent has not been submitted. Will discuss with laboratory had about availability. Review of Systems 10-point ROS is otherwise unremarkable Physical Examination - Vital Signs Temperature: 97.2 F Blood Pressure: 121/69 Pulse: 76 Respirations: 19 Pulse Ox (%): 100 - Physical Exam General: Alert, In no apparent distress, Oriented x3 Respiratory: Crackles/rales Cardiovascular: Regular rate/rhythm, Normal S1 S2, No murmurs Gastrointestinal: Normal bowel sounds, Soft and benign, Non-distended, No tenderness Musculoskeletal: No clubbing, No swelling, No tenderness Neurological: Sensation intact, Cranial nerves 3-12 intact - Studies Medications List Reviewed: Yes Assessment & Plan - Problems (Diagnosis) (1) Cavitary pneumonia Current Visit: Yes Status: Acute - Plan Continue with plan of care as mentioned below 1. Continue with IV antibiotics 2. Awaiting sputum and blood culture 3. Repeat chest x-ray 4. Appreciate pulmonary consultation 5. Awaiting AFB results 6. O2 per protocol and nebulizer treatments as needed 7. GI and DVT prophylaxis - Advance Directives Does patient have a Living Will: No Does patient have a Durable POA for Healthcare: No
--- NOTE | 2020-08-27 10:18 | P.PN ---
Subjective Date of Service: 08/26/20 Patient with no new changes. Awaiting blood test and sputum test Review of Systems 10-point ROS is otherwise unremarkable Physical Examination - Vital Signs Temperature: 97.2 F Blood Pressure: 121/69 Pulse: 76 Respirations: 19 Pulse Ox (%): 100 - Physical Exam General: Alert, In no apparent distress, Oriented x3 Respiratory: Diminished, Expiratory wheezes - Studies Medications List Reviewed: Yes Assessment & Plan - Problems (Diagnosis) (1) Cavitary pneumonia Current Visit: Yes Status: Acute - Plan Continue with plan of care as mentioned below 1. Continue with IV antibiotics 2. Awaiting sputum and blood culture 3. Repeat chest x-ray 4. Appreciate pulmonary consultation 5. Awaiting AFB results 6. O2 per protocol and nebulizer treatments as needed 7. GI and DVT prophylaxis Discharge Plan: Home Plan to discharge in: 48 Hours - Advance Directives Does patient have a Living Will: No Does patient have a Durable POA for Healthcare: No
[2020-08-27 18:06] LABS: Albumin 2.7 g/dL (3.4-5.0); Bilirubin Total 1.1 mg/dL (0.2-1.0); Potassium 4.5 mmol/L (3.5-5.1); Protein, Total 7.4 g/dL (6.4-8.2)
[2020-08-27 18:32] LABS: Absolute Lymphocytes (CBC) 0.7 K/uL (0.7-4.9); Basophils % 1.3 % (0-1.3); Hematocrit 29.7 % (39.6-49.0); Lymphocytes % 26.4 % (15.3-44.8); MPV 8.6 fL (7.6-11.3); RBC Red Blood Cell Count 2.98 M/uL (4.33-5.43)
[2020-08-27 19:01] LABS: Blood Morphology Comment NOT SEEN (NOT SEEN); Platelet Estimate DECR; White Blood Cell Scan OK (OK)
[2020-08-28] MEDS: THIAMINE HCL 100 MG TABLET PO SCH (07:44)
[2020-08-28] MEDS: DOXYCYCLINE 100 MG CAP PO SCH ×2 (07:44→20:16)
[2020-08-28] MEDS: LACTULOSE 20 GM/30 ML UCUP PO SCH ×3 (07:44→20:16)
[2020-08-28] MEDS: FOLIC ACID 1 MG TABLET PO SCH (07:45)
[2020-08-28] MEDS: FAMOTIDINE 20 MG TAB PO SCH ×2 (07:45→20:16)
[2020-08-28] MEDS: SPIRONOLACTONE 25 MG TABLET PO SCH (07:45)
[2020-08-28] MEDS: ENOXAPARIN 40 MG/0.4 ML SQ SCH (07:45)
[2020-08-28] MEDS: AMOX/K CLAV 500 MG TAB PO SCH ×2 (07:45→20:16)
--- NOTE | 2020-08-28 09:49 | P.PN ---
Subjective Date of Service: 08/27/20 Patient with no new changes. Awaiting blood test and sputum test; AFB pending; most probably malignancy or mycobacterium Review of Systems 10-point ROS is otherwise unremarkable Physical Examination - Vital Signs Temperature: 97.2 F Blood Pressure: 156/97 Pulse: 76 Respirations: 18 Pulse Ox (%): 100 - Physical Exam General: Alert, In no apparent distress, Oriented x3 - Studies Medications List Reviewed: Yes Assessment & Plan - Problems (Diagnosis) (1) Cavitary pneumonia Current Visit: Yes Status: Acute (2) Hepatitis C Current Visit: Yes Status: Acute - Plan Continue with plan of care as mentioned below 1. Continue with IV antibiotics 2. Awaiting sputum and blood culture; AFB is pending 3. Repeat chest x-ray 4. Appreciate pulmonary consultation 5. Awaiting AFB results 6. O2 per protocol and nebulizer treatments as needed 7. GI and DVT prophylaxis Discharge Plan: Home Plan to discharge in: Greater than 2 days - Advance Directives Does patient have a Living Will: No Does patient have a Durable POA for Healthcare: No
--- NOTE | 2020-08-29 07:12 | P.PN ---
Subjective Date of Service: 08/28/20 Spoke to patient's binder fixer-Pastor Romo-and he stated the patient was born in [facility]. Pulled up records from [facility] and patient had been a patient there about 8 years ago. He was also there 5 years ago for workup for a pleural effusion. TB was ruled out at that time as well. He was transferred to a tertiary care facility for further workup. He has a Medicare number as well as a social security number that was sent to case management. Currently we are waiting for AFB ease x3 to be negative. If these are negative the patient should be safe for transfer to longterm facility. His long- term prognosis is poor. He would probably benefit from inpatient hospice care. Review of Systems 10-point ROS is otherwise unremarkable Physical Examination - Vital Signs Temperature: 97.0 F Blood Pressure: 114/59 Pulse: 71 Respirations: 18 Pulse Ox (%): 99 - Physical Exam General: Alert, In no apparent distress, Oriented x1, Confused Respiratory: Diminished, Crackles/rales Cardiovascular: Regular rate/rhythm, Normal S1 S2 Gastrointestinal: Normal bowel sounds, Soft and benign, Non-distended Musculoskeletal: No clubbing, No swelling - Studies Medications List Reviewed: Yes Assessment & Plan - Problems (Diagnosis) (1) Cavitary pneumonia Current Visit: Yes Status: Acute (2) Hepatitis C Current Visit: Yes Status: Acute (3) End stage liver disease Current Visit: Yes Status: Acute (4) Cirrhosis Current Visit: Yes Status: Acute (5) Gastric varices Current Visit: Yes Status: Acute (6) Portal hypertension Current Visit: Yes Status: Acute - Plan Continue with plan of care as mentioned below 1. Continue with IV antibiotics 2. Awaiting sputum and blood culture; AFB is pending 3. Repeat chest x-ray 4. Appreciate pulmonary consultation 5. Awaiting AFB results 6. O2 per protocol and nebulizer treatments as needed 7. Most likely will have placement on Monday; possible bronchoscopy 8. GI and DVT prophylaxis Discharge Plan: Home Plan to discharge in: Greater than 2 days - Advance Directives Does patient have a Living Will: No Does patient have a Durable POA for Healthcare: No - Code Status/Comfort Care Code Status Assessed: Yes Code Status: Full Code Critical Care: No Time Spent Managing PTS Care (In Minutes): 35
[2020-08-29] MEDS: LACTULOSE 20 GM/30 ML UCUP PO SCH ×3 (09:00→21:20)
[2020-08-29] MEDS: THIAMINE HCL 100 MG TABLET PO SCH (09:23)
[2020-08-29] MEDS: FAMOTIDINE 20 MG TAB PO SCH ×2 (09:23→21:20)
[2020-08-29] MEDS: ENOXAPARIN 40 MG/0.4 ML SQ SCH (09:23)
[2020-08-29] MEDS: FOLIC ACID 1 MG TABLET PO SCH (09:23)
[2020-08-29] MEDS: DOXYCYCLINE 100 MG CAP PO SCH ×2 (09:23→21:20)
[2020-08-29] MEDS: SPIRONOLACTONE 25 MG TABLET PO SCH (09:23)
[2020-08-29] MEDS: AMOX/K CLAV 500 MG TAB PO SCH ×2 (09:33→21:20)
--- NOTE | 2020-08-29 10:58 | P.PN ---
Subjective Date of Service: 08/29/20 Primary Care Provider: None Chief Complaint: Cavitary pneumonia Subjective: No new changes, No C/O voiced Review of Systems 10-point ROS is otherwise unremarkable Physical Examination - Vital Signs Temperature: 98.0 F Blood Pressure: 119/68 Pulse: 72 Respirations: 19 Pulse Ox (%): 99 - Physical Exam General: Alert, In no apparent distress, Cachectic HEENT: Atraumatic, Normocephalic Neck: Supple Respiratory: Diminished, Crackles/rales Cardiovascular: Regular rate/rhythm, Normal S1 S2 Capillary refill: <2 Seconds Gastrointestinal: Hypoactive, Soft and benign Musculoskeletal: No clubbing, No swelling Integumentary: No rashes Neurological: Other (Alert awake) - Studies Laboratory Tests 08/19/20 08/19/20 08/19/20 18:54 19:15 19:24 WBC RBC Hgb Hct MCV MCH MCHC RDW Plt Count MPV Neutrophils % Lymphocytes % Monocytes % Eosinophils % Basophils % Absolute Neutrophils Absolute Lymphocytes Absolute Monocytes Absolute Eosinophils Absolute Basophils PT INR APTT Sodium Potassium Chloride Carbon Dioxide BUN Creatinine Estimated GFR Glucose Calcium Total Bilirubin Direct Bilirubin AST ALT Alkaline Phosphatase Ammonia Rapid Troponin I Cancelled Serum Total Protein Albumin Globulin Albumin/Globulin Ratio Urine pH 5.5 Ur Specific Irons 1.025 Glucose (UA)(Auto) Negative Urine Ketones Trace Urine Blood Negative Urine Nitrite Negative Ur Leukocyte Esterase Negative Urine Total Protein Negative Salicylates Opiates Screen Negative Methadone Screen Negative Acetaminophen Ur Barbiturates Screen Negative Ur Phencyclidine Scrn Negative Amphetamines Screen Negative Benzodiazepines Screen Negative Cocaine Screen Negative Ur THC Screen Negative Plasma/Serum Alcohol 08/19/20 08/19/20 08/19/20 19:40 19:40 19:40 WBC 2.9 L RBC 2.90 L Hgb 10.2 L Hct 28.5 L MCV 98.3 MCH 35.4 H MCHC 36.0 RDW 13.9 Plt Count 94 L MPV 8.0 Neutrophils % 70.8 Lymphocytes % 16.6 Monocytes % 9.9 Eosinophils % 1.9 Basophils % 0.8 Absolute Neutrophils 2.1 Absolute Lymphocytes 0.5 L Absolute Monocytes 0.3 Absolute Eosinophils 0.1 Absolute Basophils 0.0 PT INR APTT Sodium 145 Potassium 3.7 Chloride 118 H Carbon Dioxide 21 BUN 24 H Creatinine 0.97 Estimated GFR 77 L Glucose 96 Calcium 8.4 L Total Bilirubin 1.2 H Direct Bilirubin 0.6 H AST 76 H ALT 88 H Alkaline Phosphatase 206 H Ammonia Rapid Troponin I < 0.02 Serum Total Protein 7.9 Albumin 3.1 L Globulin 4.8 H Albumin/Globulin Ratio 0.6 L Urine pH Ur Specific Irons Glucose (UA)(Auto) Urine Ketones Urine Blood Urine Nitrite Ur Leukocyte Esterase Urine Total Protein Salicylates Opiates Screen Methadone Screen Acetaminophen < 2.0 L Ur Barbiturates Screen Ur Phencyclidine Scrn Amphetamines Screen Benzodiazepines Screen Cocaine Screen Ur THC Screen Plasma/Serum Alcohol < 10 08/19/20 08/19/20 08/19/20 19:40 19:40 19:40 WBC RBC Hgb Hct MCV MCH MCHC RDW Plt Count MPV Neutrophils % Lymphocytes % Monocytes % Eosinophils % Basophils % Absolute Neutrophils Absolute Lymphocytes Absolute Monocytes Absolute Eosinophils Absolute Basophils PT 14.2 H INR 1.21 APTT 28.7 Sodium Potassium Chloride Carbon Dioxide BUN Creatinine Estimated GFR Glucose Calcium Total Bilirubin Cancelled Direct Bilirubin Cancelled AST Cancelled ALT Cancelled Alkaline Phosphatase Cancelled Ammonia Rapid Troponin I Serum Total Protein Cancelled Albumin Cancelled Globulin Cancelled Albumin/Globulin Ratio Cancelled Urine pH Ur Specific Irons Glucose (UA)(Auto) Urine Ketones Urine Blood Urine Nitrite Ur Leukocyte Esterase Urine Total Protein Salicylates < 1.7 L Opiates Screen Methadone Screen Acetaminophen Ur Barbiturates Screen Ur Phencyclidine Scrn Amphetamines Screen Benzodiazepines Screen Cocaine Screen Ur THC Screen Plasma/Serum Alcohol 08/19/20 22:15 WBC RBC Hgb Hct MCV MCH MCHC RDW Plt Count MPV Neutrophils % Lymphocytes % Monocytes % Eosinophils % Basophils % Absolute Neutrophils Absolute Lymphocytes Absolute Monocytes Absolute Eosinophils Absolute Basophils PT INR APTT Sodium Potassium Chloride Carbon Dioxide BUN Creatinine Estimated GFR Glucose Calcium Total Bilirubin Direct Bilirubin AST ALT Alkaline Phosphatase Ammonia 57 H Rapid Troponin I Serum Total Protein Albumin Globulin Albumin/Globulin Ratio Urine pH Ur Specific Irons Glucose (UA)(Auto) Urine Ketones Urine Blood Urine Nitrite Ur Leukocyte Esterase Urine Total Protein Salicylates Opiates Screen Methadone Screen Acetaminophen Ur Barbiturates Screen Ur Phencyclidine Scrn Amphetamines Screen Benzodiazepines Screen Cocaine Screen Ur THC Screen Plasma/Serum Alcohol Medications List Reviewed: Yes Assessment & Plan - Problems (Diagnosis) (1) Cavitary pneumonia Current Visit: Yes Status: Acute (2) Cirrhosis Current Visit: Yes Status: Acute (3) End stage liver disease Current Visit: Yes Status: Acute (4) Gastric varices Current Visit: Yes Status: Acute (5) Hepatitis C Current Visit: Yes Status: Acute (6) Portal hypertension Current Visit: Yes Status: Acute Physician Review Additional Text: Assessment Toxic metabolic/hepatic encephalopathy secondary to alcoholic cirrhosis of the liver 5.5 x 3.1 x 3.0 cm cavitary lesion in the apex of the right lung with additional satellite nodules Pancytopenia likely secondary to Cirrhosis Circumferential thickening of the ascending colon Large fat containing right inguinal hernia with right hydrocele Plan Toxic metabolic/hepatic encephalopathy secondary to alcoholic cirrhosis of the liver: This has resolved. Patient back to baseline. Continue lactulose to maintain 2-3 bowel movements per day. Patient also on Aldactone. Await sputum culture results to further evaluate cavitary lesion of the right lung. Patient on antibiotics empirically. TB also being evaluated. Patient high risk for tuberculosis. If sputum unremarkable then patient may be able to be discharge as early as tomorrow. Will discuss further with pulmonology. Continue current medications. Patient will need GI evaluation as an outpatient to continue to follow his alcoholic cirrhosis. Patient reports he is no longer drinking. I will turn the service over to the hospitalist team tomorrow. I will go plan of care with him. 5.5 x 3.1 x 3.0 cm cavitary lesion in the apex of the right lung with additional satellite nodules: Await results on sputum culture. Pulmonology has patient on antibiotic therapy empirically. Await further recommendations from pulmonology. Plan a care from pulmonology will determine on when patient can be best sent home. Pancytopenia likely secondary to Cirrhosis: Overall stable. Monitor closely.. Circumferential thickening of the ascending colon: No abdominal pain noted. No nausea and vomiting. Patient will require colonoscopy as an outpatient to further evaluate. No abnormalities. Patient will need GI evaluation as an outpatient to further address. Large fat containing right inguinal hernia with right hydrocele: Stable at this time. Patient is aware that he has a hernia, states that this is not causing any pain. CT states no signs of incarceration or bowel involvement in the hernia defect. Continue to monitor. 08/29/2020 Monitor closely under telemetry. Appreciate help from pulmonology Getting a bronchoscopy Need BAL as the patient is not producing much sputum On airborne isolation mental status improved Quantiferon test still pending Monitor AFB x3 Pancytopenia noted will get a CBC and CMP in a.m. Monitor closely Time Spent Managing Pts Care (In Minutes): 42
--- NOTE | 2020-08-29 12:06 | P.PN ---
Subjective Date of Service: 08/29/20 Primary Care Provider: None Chief Complaint: Cavitary pneumonia Subjective: Improving (No changes feeling better so far 1 sputum did not show any AFBs in the smear) Review of Systems General: Weakness Physical Examination - Vital Signs Temperature: 98.0 F Blood Pressure: 119/68 Pulse: 72 Respirations: 19 Pulse Ox (%): 99 - Physical Exam General: Alert, Oriented x3 - Studies Medications List Reviewed: Yes Assessment & Plan - Problems (Diagnosis) (1) Cavitary pneumonia Current Visit: Yes Status: Acute Plan: P patient unable to cough up any significant amounts of sputum plan to do a bronchoscopy of discuss with patient the guarding the risks and benefit the only plan to do a BAL no biopsies in the slight risk of hemoptysis and pneumonia patient has been informed and he agrees vital signs all stable saturation satisfactory
[2020-08-29 18:14] LABS: Hep C Virus RNA (PCR)log 6.48 log IU/mL
[2020-08-30] MEDS: AMOX/K CLAV 500 MG TAB PO SCH ×2 (08:56→20:45)
[2020-08-30] MEDS: FOLIC ACID 1 MG TABLET PO SCH (08:56)
[2020-08-30] MEDS: FAMOTIDINE 20 MG TAB PO SCH ×2 (08:56→20:45)
[2020-08-30] MEDS: ENOXAPARIN 40 MG/0.4 ML SQ SCH (08:56)
[2020-08-30] MEDS: DOXYCYCLINE 100 MG CAP PO SCH ×2 (08:57→20:45)
[2020-08-30] MEDS: THIAMINE HCL 100 MG TABLET PO SCH (08:57)
[2020-08-30] MEDS: LACTULOSE 20 GM/30 ML UCUP PO SCH ×3 (08:57→20:45)
[2020-08-30] MEDS: SPIRONOLACTONE 25 MG TABLET PO SCH (08:58)
--- NOTE | 2020-08-30 09:43 | P.PN ---
Subjective Date of Service: 08/30/20 Primary Care Provider: None Chief Complaint: Cavitary pneumonia Subjective: No new changes (No acute changes Afebrile Denies any shortness of breath and chest pain) Review of Systems 10-point ROS is otherwise unremarkable Physical Examination - Vital Signs Temperature: 97.8 F Blood Pressure: 103/63 Pulse: 71 Respirations: 17 Pulse Ox (%): 100 - Physical Exam General: Alert, In no apparent distress, Cachectic HEENT: Atraumatic, Normocephalic Neck: Supple Respiratory: Diminished, Crackles/rales Cardiovascular: Normal pulses, Regular rate/rhythm, Normal S1 S2 Capillary refill: <2 Seconds Gastrointestinal: Soft and benign, W/out hepatosplenomegaly Musculoskeletal: No clubbing, No swelling Integumentary: No rashes, No breakdown Neurological: Normal speech, Normal strength at 5/5 x4 extr Lymphatics: Other (No generalized lymphadenopathy) - Studies Medications List Reviewed: Yes Assessment & Plan - Problems (Diagnosis) (1) Cavitary pneumonia Current Visit: Yes Status: Acute (2) Cirrhosis Current Visit: Yes Status: Acute (3) End stage liver disease Current Visit: Yes Status: Acute (4) Gastric varices Current Visit: Yes Status: Acute (5) Hepatitis C Current Visit: Yes Status: Acute (6) Portal hypertension Current Visit: Yes Status: Acute Physician Review Additional Text: Assessment Toxic metabolic/hepatic encephalopathy secondary to alcoholic cirrhosis of the liver 5.5 x 3.1 x 3.0 cm cavitary lesion in the apex of the right lung with additional satellite nodules Pancytopenia likely secondary to Cirrhosis Circumferential thickening of the ascending colon Large fat containing right inguinal hernia with right hydrocele Plan Toxic metabolic/hepatic encephalopathy secondary to alcoholic cirrhosis of the liver: This has resolved. Patient back to baseline. Continue lactulose to maintain 2-3 bowel movements per day. Patient also on Aldactone. Await sputum culture results to further evaluate cavitary lesion of the right lung. Patient on antibiotics empirically. TB also being evaluated. Patient high risk for tuberculosis. If sputum unremarkable then patient may be able to be discharge as early as tomorrow. Will discuss further with pulmonology. Continue current medications. Patient will need GI evaluation as an outpatient to continue to follow his alcoholic cirrhosis. Patient reports he is no longer drinking. I w ill turn the service over to the hospitalist team tomorrow. I will go plan of care with him. 5.5 x 3.1 x 3.0 cm cavitary lesion in the apex of the right lung with additional satellite nodules: Await results on sputum culture. Pulmonology has patient on antibiotic therapy empirically. Await further recommendations from pulmonology. Plan a care from pulmonology will determine on when patient can be best sent home. Pancytopenia likely secondary to Cirrhosis: Overall stable. Monitor closely.. Circumferential thickening of the ascending colon: No abdominal pain noted. No nausea and vomiting. Patient will require colonoscopy as an outpatient to further evaluate. No abnormalities. Patient will need GI evaluation as an outpatient to further address. Large fat containing right inguinal hernia with right hydrocele: Stable at this time. Patient is aware that he has a hernia, states that this is not causing any pain. CT states no signs of incarceration or bowel involvement in the hernia defect. Continue to monitor. 08/30/2020 No acute events, Afebrile Monitor closely under telemetry. Appreciate help from pulmonology Getting a bronchoscopy on Monday Need BAL as the patient is not producing much sputum On airborne isolation mental status improved Quantiferon test still pending Monitor AFB x3 Pancytopenia noted will get a CBC and CMP in a.m. Monitor closely Time Spent Managing Pts Care (In Minutes): 39
[2020-08-30 10:32] LABS: Absolute Lymphocytes (CBC) 0.8 K/uL (0.7-4.9); Lymphocytes % 23.1 % (15.3-44.8); MPV 8.6 fL (7.6-11.3); RBC Red Blood Cell Count 3.77 M/uL (4.33-5.43)
[2020-08-30 10:54] LABS: Albumin 2.9 g/dL (3.4-5.0); Bilirubin Total 1.2 mg/dL (0.2-1.0); Potassium 3.9 mmol/L (3.5-5.1); Protein, Total 8.3 g/dL (6.4-8.2)
--- NOTE | 2020-08-30 11:57 | RAD REPORT ---
EXAM DESCRIPTION: RAD - Chest Single View - 08/30/2020 6:45 am CLINICAL HISTORY: Pneumonia Chest pain. COMPARISON: Chest Single View dated 08/19/2020; Chest Abdomen Pelvis W Cont dated 08/19/2020 FINDINGS: Portable technique limits examination quality. Irregular cavitary lesion in the right apex appears stable. The lungs are clear of acute infiltrate. The heart is normal in size.
[2020-08-30] MEDS ORDERED: LIDOCAINE 1% MPF 5 ML VIAL ONE (23:38)
[2020-08-31] MEDS: FAMOTIDINE 20 MG TAB PO SCH ×2 (09:00→22:24)
[2020-08-31] MEDS: LACTULOSE 20 GM/30 ML UCUP PO SCH ×3 (09:00→22:25)
[2020-08-31] MEDS: DOXYCYCLINE 100 MG CAP PO SCH ×2 (09:00→22:25)
[2020-08-31] MEDS: ENOXAPARIN 40 MG/0.4 ML SQ SCH (09:00)
[2020-08-31] MEDS: AMOX/K CLAV 500 MG TAB PO SCH ×2 (09:00→22:24)
[2020-08-31] MEDS: SPIRONOLACTONE 25 MG TABLET PO SCH (09:00)
[2020-08-31] MEDS ORDERED: Phenylephrine HCl 10 MG/ML 1 ML VIAL ONE (11:41)
[2020-08-31] MEDS ORDERED: GLYCOPYRROLATE 0.2 MG/ML SYR ONE (11:42)
[2020-08-31] MEDS ORDERED: LIDOCAINE 1% MPF 30 ML VIAL ONE (11:42)
[2020-08-31] MEDS ORDERED: LIDOCAINE VISCOUS 2% SOLN 15 ML UDC ONE (11:43)
[2020-08-31] MEDS ORDERED: LIDOCAINE 4% TOP SOLUTION ONE (11:43)
[2020-08-31] MEDS ORDERED: Ringers Lactate 1,000 ML IV ONE (12:10)
[2020-08-31] MEDS ORDERED: propofoL 200 MG/20 ML VIAL IV ONE (12:41)
[2020-08-31] MEDS ORDERED: LIDOCAINE 1% MPF 5 ML VIAL ONE (12:41)
[2020-08-31] MEDS ORDERED: FENTANYL CITR 100 MCG/2 ML ONE (12:41)
[2020-08-31] MEDS: FOLIC ACID 1 MG TABLET PO SCH (15:46)
[2020-08-31] MEDS: THIAMINE HCL 100 MG TABLET PO SCH (15:46)
[2020-08-31] MEDS: ACETAMINOPHEN 500 MG TAB PO PRN (15:47)
--- NOTE | 2020-08-31 16:51 | P.PN ---
Subjective Date of Service: 08/31/20 Primary Care Provider: None Chief Complaint: Cavitary pneumonia Subjective: Doing well Physical Examination - Vital Signs Temperature: 97.2 F Blood Pressure: 107/59 Pulse: 73 Respirations: 18 Pulse Ox (%): 96 - Physical Exam General: Alert, Cooperative HEENT: Atraumatic Neck: Supple Respiratory: Clear to auscultation bilaterally, Normal air movement Cardiovascular: Normal pulses, Regular rate/rhythm Gastrointestinal: Normal bowel sounds, No ascites Neurological: Normal speech, Normal strength at 5/5 x4 extr, Normal tone, Normal affect - Studies Medications List Reviewed: Yes Assessment & Plan Discharge Plan: Home Plan to discharge in: 72 Hours Physician Review Additional Text: Assessment Toxic metabolic/hepatic encephalopathy secondary to alcoholic cirrhosis of the liver 5.5 x 3.1 x 3.0 cm cavitary lesion in the apex of the right lung with additional satellite nodules Pancytopenia likely secondary to alcoholic Cirrhosis Circumferential thickening of the ascending colon Large fat containing right inguinal hernia with right hydrocele Elevated liver function likely from alcoholic cirrhosis, hepatitis-C positive Plan Toxic metabolic/hepatic encephalopathy secondary to alcoholic cirrhosis of the liver: This appears resolved. Liver function tests have been elevated over the past several days. Will recheck again tomorrow. Patient was found to be hepatitis C positive. Will discuss with pulmonology. Pulmonology did perform bronchoscopy today. Await stat AFB if negative then will consider discharge. Will continue monitor closely. Continue current medications. 5.5 x 3.1 x 3.0 cm cavitary lesion in the apex of the right lung with additional satellite nodules: Await results on sputum culture on bronchoscopy that was done today. Pancytopenia likely secondary to Cirrhosis: Overall stable. Monitor closely.. Circumferential thickening of the ascending colon: No abdominal pain noted. No nausea and vomiting. Patient will require colonoscopy as an outpatient to further evaluate. No abnormalities. Patient will need GI evaluation as an outpatient to further address. Large fat containing right inguinal hernia with right hydrocele: Stable at this time. Patient is aware that he has a hernia, states that this is not causing any pain. CT states no signs of incarceration or bowel involvement in the hernia defect. Continue to monitor. Time Spent Managing Pts Care (In Minutes): 55
[2020-09-01 05:41] LABS: Absolute Lymphocytes (CBC) 0.7 K/uL (0.7-4.9); Basophils % 1.3 % (0-1.3); Hematocrit 31.1 % (39.6-49.0); Lymphocytes % 19.7 % (15.3-44.8); MPV 8.3 fL (7.6-11.3); RBC Red Blood Cell Count 3.11 M/uL (4.33-5.43)
[2020-09-01 05:57] LABS: Albumin 2.6 g/dL (3.4-5.0); Magnesium 2.1 mg/dL (1.8-2.4); Protein, Total 7.4 g/dL (6.4-8.2)
[2020-09-01] MEDS: FAMOTIDINE 20 MG TAB PO SCH (09:09)
[2020-09-01] MEDS: THIAMINE HCL 100 MG TABLET PO SCH (09:09)
[2020-09-01] MEDS: FOLIC ACID 1 MG TABLET PO SCH (09:09)
[2020-09-01] MEDS: AMOX/K CLAV 500 MG TAB PO SCH (09:09)
[2020-09-01] MEDS: DOXYCYCLINE 100 MG CAP PO SCH (09:09)
[2020-09-01] MEDS: SPIRONOLACTONE 25 MG TABLET PO SCH (09:10)
[2020-09-01] MEDS: ENOXAPARIN 40 MG/0.4 ML SQ SCH (09:10)
[2020-09-01] MEDS: LACTULOSE 20 GM/30 ML UCUP PO SCH ×2 (09:10→15:10)
[2020-09-01 11:32] VITALS: O2SAT 99
--- NOTE | 2020-09-01 15:00 | P.DS ---
Admission Date: 08/20/20 Discharge Date: 09/01/20 Primary Care Provider: None Disposition: ROUTINE DISCHARGE Discharge Condition: GOOD Reason for Admission: Cavitary pneumonia Consultations: Pulmonary-Dr. Yu Procedures: CT Scan: FINDINGS: CHEST HEART/VESSELS: Heart is normal in size. No pericardial fluid. Normal caliber thoracic aorta. There is mild aorta atherosclerosis. Normal branch pattern of the arch vessels. Normal caliber main pulmonary artery. There are significant coronary artery calcifications. MEDIASTINUM AND TL: Scattered lymph nodes throughout the mediastinum. Enlarged subcarinal node is 1.9 x 1.4 x 2.9 cm. No filling defect within the central airways. There is an 8 mm air-filled outpouching along the right upper tracheal wall at the thoracic inlet compatible with a tiny tracheocele. LUNGS/PLEURA: There is a thick-walled irregular 5.5 x 3.1 x 3.0 cm mass in the right apex with a central air-filled collection and an air-fluid level compatible with cavitation. There is adjacent groundglass attenuation anteriorly with a small collection of peripheral satellite nodules and minimal adjacent pleural thickening. The right upper lobe bronchi extend into this collection. There are several linear or nodular densities within the inferior aspect of the right middle lobe. Very faint groundglass peribronchial opacities within the anterior left upper lobe. Left lower lobe and right lower lobe subpleural atelectasis noted. There is no pneumothorax. No pleural fluid seen. There is no pneumothorax. CHEST WALL/SOFT TISSUES: Unremarkable thyroid. There is no axillary lymphadenopathy. The sternum is intact. There is mild thoracic spondylosis. There are several old posterior inferior right rib fractures. ABDOMEN: LIVER/GALLBLADDER: Normal liver size. Slight hepatic nodularity due to cirrhosis. No mass or biliary dilatation. Gallbladder is contracted. Minimal pericholecystic edema. No gallstones. SPLEEN/PANCREAS: There is marked splenic enlargement, greater than 22 cm. Splenic index is 3386, normal less than 480. There is no perisplenic free fluid. There are numerous varices adjacent to the gastric cardia. The pancreas appears normal. KIDNEYS/ADRENAL GLANDS: Normal adrenal glands. Normal right and left renal enhancement. There is mass effect upon the left kidney by the splenic enlargement. RETROPERITONEAL VESSELS/NODES: Significant abdominal aorta atherosclerosis. No aneurysm. Normal caliber inferior vena cava. Mesenteric vessels are well- opacified. BOWEL: There are numerous varices within the superior wall of the gastric cardia. Remaining stomach appears normal. Small bowel loops are of normal caliber. Appendix is normal in the right lower quadrant. There is circumferential thickening of the ascending colon diffusely. Unremarkable remaining colon. MESENTERY/PERITONEUM: No ascites. There is no mesenteric adenopathy. There is mild central mesenteric edema. PELVIS: BLADDER/GENITAL ORGANS: Normal bladder. The prostate is 5.0 x 3.9 x 4.3 cm cyst. Dystrophic calcification. No pelvic free fluid. PERITONEUM: There is a large fat-containing right inguinal hernia extending into the superior aspect of the right scrotal sac, approximately 10.4 x 4.1 x 5.1 cm with a moderate right hydrocele, not fully imaged. BONES AND SOFT TISSUES: There is mild degenerative anterior subluxation of L4 on L5 with significant left facet arthropathy. Intact bony pelvis. Normal hips. Significant vascular calcifications within the right and left femoral vessels. IMPRESSION: 1. Thick-walled right apical cavitary mass with several satellite nodules. Mild associated mediastinal lymphadenopathy. Differential includes tuberculosis, fungal disease, cavitary neoplasm. 2. Faint peribronchial pneumonitis within the left upper lobe. Right middle lobe atelectasis with possible associated pneumonitis. Bilateral lower lobe atelectasis. Imaging features can be seen with viral pneumonia, though are nonspecific and can occur with a variety of infectious and noninfectious processes. PneInd Reference: https://pubs.rsna.org/doi/full/10.1148/ryct.9756823959 3. Hepatic cirrhosis with massive splenomegaly and gastric varices indicative of portal hypertension. Portal vein appears patent on today's exam. 4. Mild pericholecystic edema is likely due to adjacent liver disease rather than acalculous cholecystitis. No biliary dilatation. 5. Diffuse colitis involving the ascending colon. The possibility of infiltrative malignancy is also within the differential. Follow-up is warranted. 6. Large fat-containing right inguinal hernia with a right hydrocele, not fully imaged. No evidence of incarceration. No bowel involvement in the hernia defect. Brochoscopy: Pathology- Lung, right upper lobe, bronchoalveolar lavage: -No malignant cells identified. -No definite acid fast bacilli identidifed -Rare probable fungal organism Medical Problem List: Toxic metabolic/hepatic encephalopathy secondary to alcoholic cirrhosis of the liver 5.5 x 3.1 x 3.0 cm cavitary lesion in the apex of the right lung with additional satellite nodules Pancytopenia likely secondary to alcoholic Cirrhosis Circumferential thickening of the ascending colon Large fat containing right inguinal hernia with right hydrocele Elevated liver function likely from alcoholic cirrhosis, hepatitis-C positive Brief History of Present Illness: 69-year-old male was found unresponsive in a ditch. The patient was evaluated in the emergency room. CT scan revealed right upper cavitary lesion. Pancytopenia noted. Ammonia level was elevated suspicious for hepatic encephalopathy. Patient with history of alcoholic cirrhosis. Patient was admitted for further evaluation and treatment. Hospital Course: Patient presented with toxic metabolic and hepatic encephalopathy secondary to alcoholic cirrhosis of the liver. Patient with history of alcohol abuse. Patient was admitted for further evaluation. Patient required lactulose for his encephalopathy. Patient was found to have hepatitis-C as well. The patient has remained stable. At discharge patient will continue with lactulose 3 times a day to maintain 2-3 bowel movements per day. The patient will also continue with Aldactone 25 mg daily. Other medications include folic acid 1 mg daily and thiamine 100 mg daily. Recommend patient to establish care with a local PCP to follow up his care. Patient should also establish care with GI to further address his alcoholic cirrhosis and hepatitis. Patient may be a candidate for treatment. This will be further evaluated by GI. Patient found to have a 5.5 x 3.1 x 3.0 cm cavitary lesion to the right apex the lung. Pulmonology was consulted. Patient did require bronchoscopy for further evaluation. No malignant cells noted. No acid-fast cells noted. Pulmonology recommended no further evaluation at this time. Recommend follow up with pulmonology in 1-2 weeks to follow up his care. Patient had pancytopenia likely related to cirrhosis. This has remained stable. Recommend lab-CBC in 2-4 weeks to monitors progress. At discharge will also recommend for the patient to have a colonoscopy as an outpatient with GI. At discharge will also recommend alcohol cessation. Vital Signs/Physical Exam: Temp Pulse Resp BP Pulse Ox 97.1 F 86 18 123/59 L 97 09/01/20 12:00 09/01/20 12:00 09/01/20 12:00 09/01/20 12:09/01/20 12:00 General: Alert, In no apparent distress, Oriented x3, Cooperative HEENT: Atraumatic Neck: Supple Respiratory: Clear to auscultation bilaterally, Normal air movement Cardiovascular: Normal pulses, Regular rate/rhythm Gastrointestinal: Normal bowel sounds, No tenderness, No masses, No rebound, No guarding Neurological: Normal speech, Normal strength at 5/5 x4 extr, Normal tone, Normal affect Laboratory Data at Discharge: WBC 3.4 K/uL (4.3-10.9) L 09/01/20 05:23 Hgb 10.8 g/dL (13.6-17.9) L 09/01/20 05:23 Hct 31.1 % (39.6-49.0) L D 09/01/20 05:23 Plt Count 86 K/uL (152-406) L 09/01/20 05:23 PT 14.5 SECONDS (9.5-12.5) H 08/21/20 10:58 INR 1.23 08/21/20 10:58 APTT 28.7 SECONDS (24.3-36.9) 08/19/20 19:40 Sodium 141 mmol/L (136-145) 09/01/20 05:23 Potassium 4.0 mmol/L (3.5-5.1) 09/01/20 05:23 BUN 22 mg/dL (7-18) H 09/01/20 05:23 Creatinine 0.90 mg/dL (0.55-1.3) 09/01/20 05:23 Glucose 95 mg/dL (74-106) 09/01/20 05:23 Phosphorus 4.0 mg/dL (2.5-4.9) 08/25/20 05:36 Magnesium 2.1 mg/dL (1.8-2.4) D 09/01/20 05:23 Total Bilirubin 1.0 mg/dL (0.2-1.0) 09/01/20 05:23 AST 243 U/L (15-37) H 09/01/20 05:23 ALT 235 U/L (12-78) H 09/01/20 05:23 Alkaline Phosphatase 134 U/L (45-117) H 09/01/20 05:23 Triglycerides 60 mg/dL (<150) 08/20/20 09:03 Cholesterol 94 mg/dL (<200) 08/20/20 09:03 HDL Cholesterol 47 mg/dL (40-60) 08/20/20 09:03 Cholesterol/HDL Ratio 2.00 08/20/20 09:03 Home Medications: Folic Acid 1 mg PO DAILY #30 tablet 09/01/20 Lactulose [Cephulac*] 30 ml PO TID #1 bottle 09/01/20 Spironolactone [Aldactone*] 25 mg PO DAILY #30 tab 09/01/20 Thiamine HCl [Vitamin B-1*] 100 mg PO DAILY #30 tablet 09/01/20 New Medications: Spironolactone [Aldactone*] 25 mg PO DAILY #30 tab Lactulose [Cephulac*] 30 ml PO TID #1 bottle Folic Acid 1 mg PO DAILY #30 tablet Thiamine HCl [Vitamin B-1*] 100 mg PO DAILY #30 tablet Patient Discharge Instructions: Recommend follow up with a PCP to establish care and follow up this hospitalization. Patient presented with toxic metabolic and hepatic encephalopathy secondary to alcoholic cirrhosis of the liver. Patient with history of alcohol abuse. Patient was admitted for further evaluation. Patient required lactulose for his encephalopathy. Patient was found to have hepatitis-C as well. The patient has remained stable. At discharge patient will continue with lactulose 3 times a day to maintain 2-3 bowel movements per d ay. The patient will also continue with Aldactone 25 mg daily. Other medications include folic acid 1 mg daily and thiamine 100 mg daily. Recommend patient to establish care with a local PCP to follow up his care. Patient should also establish care with GI to further address his alcoholic cirrhosis and hepatitis. Patient may be a candidate for treatment. This will be further evaluated by GI. Patient found to have a 5.5 x 3.1 x 3.0 cm cavitary lesion to the right apex the lung. Pulmonology was consulted. Patient did require bronchoscopy for further evaluation. No malignant cells noted. No acid-fast cells noted. Pulmonology recommended no further evaluation at this time. Recommend follow up with pulmonology in 1-2 weeks to follow up his care. Patient had pancytopenia likely related to cirrhosis. This has remained stable. Recommend lab-CBC in 2-4 weeks to monitors progress. At discharge will also recommend for the patient to have a colonoscopy as an outpatient with GI. At discharge will also recommend alcohol cessation. Diet: Regular Activity: Ad jareth Followup: NONE,NONE [Primary Care Provider] - Time spent managing pt's care (in minutes): 55
[2020-09-01 17:48] VITALS: BP 119/55; TEMP 98.1
== END 2020-09-01 20:24 | disposition home or self-care (01) | DRG 432 ==
LOC: ER 18:21 → ERHOLD 08-20 04:04 → 4TH 08-20 07:23 → 2ND 08-26 14:23
PROVIDERS: ADMIT Family Medicine; ATTEND Family Medicine
PROC: 0BJ08ZZ Inspection of Tracheobronchial Tree, Via Natural or Artificial Opening Endoscopic (ICD-10-PCS; principal; 2020-08-24)
DX: K70.30 Alcoholic cirrhosis of liver without ascites (principal); G92 Toxic encephalopathy; J18.8 Other pneumonia, unspecified organism; D61.818 Other pancytopenia; K76.6 Portal hypertension; R64 Cachexia; K70.10 Alcoholic hepatitis without ascites; K40.90 Unilateral inguinal hernia, without obstruction or gangrene, not specified as recurrent; I86.4 Gastric varices; N43.3 Hydrocele, unspecified; B19.20 Unspecified viral hepatitis C without hepatic coma; R79.89 Other specified abnormal findings of blood chemistry; Z59.0 Homelessness; Z56.0 Unemployment, unspecified; Z87.891 Personal history of nicotine dependence; Z68.22 Body mass index [BMI] 22.0-22.9, adult; Z20.828 Contact with and (suspected) exposure to other viral communicable diseases
CPT/HCPCS: 36415; 70450; 71045; 71260; 72125; 74177; 80048; 80053; 80061; 80074; 80076; 80307; 80320; 80329; 81003; 82140; 82607; 82728; 82746; 83540; 83605; 83735; 83880; 84100; 84439; 84443; 84466; 84484; 85025; 85610; 85730; 87015; 87070; 87077; 87102; 87116; 87186; 87206; 87389; 87522; 88108; 88305; 93005; 94010; 96360; 96361; 97116; 97161; 99285; J1650; J2370; J2704; J3010; J7030; J7120; Q9967; U0002

== ENCOUNTER 2020-09-09 13:34 | Emergency (ER) | payer OTHER ==
--- NOTE | 2020-09-09 14:25 | RAD REPORT ---
EXAM DESCRIPTION: RAD - Chest Single View - 09/09/2020 2:15 pm CLINICAL HISTORY: General weakness Chest pain. COMPARISON: Chest Single View dated 08/30/2020; Chest Single View dated 08/19/2020 FINDINGS: Portable technique limits examination quality. Area of cavitation in the right apex is unchanged since prior study. Patchy opacity has developed in the right upper lobe laterally likely representing developing pneumonia. The heart is normal in size. No displaced fractures. IMPRESSION: Developing right upper lobe pneumonia.
[2020-09-09 14:51] LABS: Protime INR 1.2
[2020-09-09 15:05] LABS: ALT/SGPT 79 U/L (12-78); AST/SGOT 72 U/L (15-37); Albumin 2.9 g/dL (3.4-5.0); Alkaline Phosphatase 115 U/L (45-117); BUN Blood Urea Nitrogen 20 mg/dL (7-18); Bicarbonate 22 mmol/L (21-32); Bilirubin Direct 0.7 mg/dL (0-0.2); Bilirubin Total 1.6 mg/dL (0.2-1.0); Glucose Level 89 mg/dL (74-106); Magnesium 2.2 mg/dL (1.8-2.4); NT PRO-BNP 89 pg/mL (<125); Potassium 4.3 mmol/L (3.5-5.1); Protein, Total 8.3 g/dL (6.4-8.2); Sodium Level 139 mmol/L (136-145); Troponin (Emerg Dept Use Only) < 0.02 ng/mL (0.0-0.045)
[2020-09-09 15:20] LABS: Absolute Lymphocytes (CBC) 0.9 K/uL (0.7-4.9); Basophils % 0.4 % (0-1.3); Hematocrit 35.2 % (39.6-49.0); Lymphocytes % 15.5 % (15.3-44.8); MPV 8.2 fL (7.6-11.3); RBC Red Blood Cell Count 3.65 M/uL (4.33-5.43)
[2020-09-09] MEDS ORDERED: CEFTRIAXONE/SWI 1gm 1 GM/10 ML SYR ONE (15:40)
--- NOTE | 2020-09-09 16:29 | ER ---
Nurse's Notes [facility] Name: Gerald Garcia Jr Age: 69 yrs Sex: Male : 1950 Arrival Date: 09/09/2020 Time: 13:34 Bed 29 Private MD: Diagnosis: Pneumonia, unspecified organism Presentation: 09/09 13:35 Chief complaint: EMS states: pt was found on side of road, appeared altered (A\T\OX2) iw says he was walking and got tired to he laid down, states he hasn't eaten in a few days and not had any water in 2 days. Coronavirus screen: At this time, the client does not indicate any symptoms associated with coronavirus-19. Ebola Screen: Patient negative for fever greater than or equal to 101.5 degrees Fahrenheit, and additional compatible Ebola Virus Disease symptoms Patient denies exposure to infectious person. Patient denies travel to an Ebola-affected area in the 21 days before illness onset. No symptoms or risks identified at this time. Initial Sepsis Screen: Does the patient meet any 2 criteria? No. Patient's initial sepsis screen is negative. Does the patient have a suspected source of infection? No. Patient's initial sepsis screen is negative. Risk Assessment: Do you want to hurt yourself or someone else? Patient reports no desire to harm self or others. 13:35 Method Of Arrival: EMS: [facility] iw 13:35 Acuity: DEISY 3 iw 17:55 Onset of symptoms was September 09, 2020. iw Historical: - Allergies: 13:45 NKA; iw - Home Meds: 13:45 None [Active]; iw - PMHx: 13:45 None; iw - PSHx: 13:45 None; iw - Immunization history:: Adult Immunizations unknown. - Social history:: Smoking status: Patient/guardian denies using tobacco. Screenin:46 Abuse screen: Denies threats or abuse. Denies injuries from another. Nutritional iw screening: No deficits noted. Tuberculosis screening: No symptoms or risk factors identified. Fall Risk None identified. Assessment: 13:45 General: Appears in no apparent distress. Behavior is calm, cooperative. Pain:. Neuro: iw Level of Consciousness is awake, alert, obeys commands, Oriented to person, place, time, situation. Cardiovascular: Respiratory: Respiratory effort is even, unlabored, Respiratory pattern is regular. GI: Abdomen is flat, non-distended. Derm: Skin is fragile, is thin, with poor turgor. Musculoskeletal: Range of motion: intact in all extremities. 16:13 Reassessment: Patient appears in no apparent distress at this time. Patient and/or iw family updated on plan of care and expected duration. Pain level reassessed. Patient is alert, oriented x 3, equal unlabored respirations, skin warm/dry/pink. Vital Signs: 13:35 BP 128 / 76; Pulse 78; Resp 16; Temp 98.3; Pulse Ox 97% on R/A; iw ED Course: 13:34 Patient arrived in ED. iw 13:36 Kign Lara MD is Attending Physician. kdr 13:40 Triage completed. iw 13:40 Arm band placed on. iw 13:45 Patient has correct armband on for positive identification. iw 14:22 XRAY Chest (1 view) In Process Unspecified. EDMS 14:39 Elizabeth Oliva, RN is Primary Nurse. iw 14:39 Initial lab(s) drawn, by md, sent to lab. Inserted saline lock: 22 gauge in right iw ,using aseptic technique. leg/calf Blood collected. 17:42 No provider procedures requiring assistance completed. IV discontinued, intact, iw bleeding controlled, No redness/swelling at site. Pressure dressing applied. Administered Medications: 16:13 Drug: Rocephin - (cefTRIAXone) 2 grams {Note: right leg.} Route: IVPB; Infused Over: 30 iw mins; Site: Other; Point of Care Testing: Blood Glucose: 14:40 Blood Glucose: 83 mg/dL; iw Ranges: Outcome: 16:29 Discharge ordered by . kdr 17:42 Discharged to home ambulatory. iw 17:42 Condition: good 17:42 Discharge instructions given to patient, Instructed on discharge instructions, follow up and referral plans. medication usage, Demonstrated understanding of instructions, follow-up care, medications, Prescriptions given X 1. 17:43 Patient left the ED. iw Signatures: Dispatcher [employer] EDMS King Lara MD MD kdr Elizabeth Oliva, RN RN iw
--- NOTE | 2020-09-09 16:30 | EDPHYS ---
Physician Documentation [facility] Name: Gerald Garcia Jr Age: 69 yrs Sex: Male : 1950 Arrival Date: 09/09/2020 Time: 13:34 Bed 29 Private MD: ED Physician King Lara HPI: 09/09 15:49 This 69 yrs old Male presents to ER via EMS with complaints of General kdr Weakness. 15:49 The patient was found by police [place] the roadside, he claimed that he had not eaten in kdr four days and not drank in two days. He was reported to have been disoriented (A\T\Ox2) at the scene. he has no focal on initial c/o in the ED. Onset: The symptoms/episode began/occurred at an unknown time. Severity of symptoms: At their worst the symptoms were mild in the emergency department the symptoms are unchanged. It is unknown whether or not the patient has had similar symptoms in the past. The patient has not recently seen a physician, It is unknown whether or not the patient has recently seen a physician. Historical: - Allergies: 13:45 NKA; iw - Home Meds: 13:45 None [Active]; iw - PMHx: 13:45 None; iw - PSHx: 13:45 None; iw - Immunization history:: Adult Immunizations unknown. - Social history:: Smoking status: Patient/guardian denies using tobacco. ROS: 15:49 Constitutional: Negative for fever, chills, and weight loss, Eyes: Negative for injury, kdr pain, redness, and discharge, ENT: Negative for injury, pain, and discharge, Neck: Negative for injury, pain, and swelling, Cardiovascular: Negative for chest pain, palpitations, and edema, Respiratory: Negative for shortness of breath, cough, wheezing, and pleuritic chest pain, Abdomen/GI: Negative for abdominal pain, nausea, vomiting, diarrhea, and constipation, Back: Negative for injury and pain, : Negative for injury, bleeding, discharge, and swelling, MS/Extremity: Negative for injury and deformity, Skin: Negative for injury, rash, and discoloration, Psych: Negative for depression, anxiety, suicide ideation, homicidal ideation, and hallucinations, Allergy/Immunology: Negative for hives, rash, and allergies, Endocrine: Negative for neck swelling, polydipsia, polyuria, polyphagia, and marked weight changes, Hematologic/Lymphatic: Negative for swollen nodes, abnormal bleeding, and unusual bruising. 15:49 Neuro: Positive for headache, weakness. Exam: 15:49 Constitutional: This is a well developed, well nourished patient who is awake, alert, kdr and in no acute distress. Head/Face: Normocephalic, atraumatic. Eyes: Pupils equal round and reactive to light, extra-ocular motions intact. Lids and lashes normal. Conjunctiva and sclera are non-icteric and not injected. Cornea within normal limits. Periorbital areas with no swelling, redness, or edema. Neck: Trachea midline, no thyromegaly or masses palpated, and no cervical lymphadenopathy. Supple, full range of motion without nuchal rigidity, or vertebral point tenderness. No Meningismus. Chest/axilla: Normal chest wall appearance and motion. Nontender with no deformity. No lesions are appreciated. Cardiovascular: Regular rate and rhythm with a normal S1 and S2. No gallops, murmurs, or rubs. Normal PMI, no JVD. No pulse deficits. Respiratory: Lungs have equal breath sounds bilaterally, clear to auscultation and percussion. No rales, rhonchi or wheezes noted. No increased work of breathing, no retractions or nasal flaring. Abdomen/GI: Soft, non-tender, with normal bowel sounds. No distension or tympany. No guarding or rebound. No evidence of tenderness throughout. Back: No spinal tenderness. No costovertebral tenderness. Full range of motion. Skin: Warm, dry with normal turgor. Normal color with no rashes, no lesions, and no evidence of cellulitis. MS/ Extremity: Pulses equal, no cyanosis. Neurovascular intact. Full, normal range of motion. 17:00 ECG was reviewed by the Attending Physician. kdr Vital Signs: 13:35 BP 128 / 76; Pulse 78; Resp 16; Temp 98.3; Pulse Ox 97% on R/A; iw MDM: 16:29 Patient medically screened. kdr 16:30 Data reviewed: vital signs, nurses notes, lab test result(s), radiologic studies. kdr Counseling: I had a detailed discussion with the patient and/or guardian regarding: the historical points, exam findings, and any diagnostic results supporting the discharge/admit diagnosis, lab results, radiology results, the need for outpatient follow up. 09/09 13:49 Order name: Basic Metabolic Panel; Complete Time: 15:13 kdr 09/09 13:49 Order name: CBC with Diff kdr 09/09 13:49 Order name: LFT's; Complete Time: 15:13 kdr 09/09 13:49 Order name: Magnesium; Complete Time: 15:13 kdr 09/09 13:49 Order name: NT PRO-BNP; Complete Time: 15:13 kdr 09/09 13:49 Order name: PT-INR; Complete Time: 16:20 kdr 09/09 13:49 Order name: Troponin (emerg Dept Use Only); Complete Time: 15:13 kdr 09/09 13:49 Order name: XRAY Chest (1 view); Complete Time: 15:13 kdr 09/09 13:49 Order name: EKG; Complete Time: 13:50 kdr 09/09 13:49 Order name: Cardiac monitoring; Complete Time: 15:27 kdr 09/09 13:57 Order name: AMMONIA; Complete Time: 15:13 kdr 09/09 14:48 Order name: Glucose, Ancillary Testing; Complete Time: 15:13 EDMS 09/09 15:32 Order name: Diet Regular; Complete Time: 15:33 iw 09/09 13:49 Order name: EKG - Nurse/Tech; Complete Time: 15:27 kdr 09/09 13:49 Order name: IV Saline Lock; Complete Time: 14:44 kdr 09/09 13:49 Order name: Labs collected and sent; Complete Time: 14:44 kdr 09/09 13:49 Order name: O2 Per Protocol; Complete Time: 14:44 kdr 09/09 13:49 Order name: O2 Sat Monitoring; Complete Time: 14:44 kdr EC:00 Rate is 68 beats/min. Rhythm is regular, Normal Sinus Rhythm with No ectopy. QRS [place] kdr is Normal. NE interval is normal. QRS interval is normal. QT interval is normal. Clinical impression: Normal ECG. Administered Medications: 16:13 Drug: Rocephin - (cefTRIAXone) 2 grams {Note: right leg.} Route: IVPB; Infused Over: 30 iw mins; Site: Other; Point of Care Testing: Blood Glucose: 14:40 Blood Glucose: 83 mg/dL; iw Ranges: Critical Glucose Levels:Adult <50 mg/dl or >400 mg/dl <40 mg/dl or >180 mg/dl Disposition: 09/09/20 16:29 Discharged to Home. Impression: Pneumonia, unspecified organism. - Condition is Fair. - Discharge Instructions: Community-Acquired Pneumonia, Adult. - Prescriptions for Amoxicillin 500 mg Oral Capsule - take 1 capsule by ORAL route every 8 hours for 10 days; 30 tablet. - Medication Reconciliation Form, Thank You Letter, Antibiotic Education form. - Follow up: Private Physician; When: 1 - 2 days; Reason: If symptoms return, Further diagnostic work-up, Recheck today's complaints, Continuance of care, Re-evaluation by your physician. - Problem is new. - Symptoms have improved. Signatures: Dispatcher [employer] EDMS King Lara MD MD kdr Elizabeth Oliva RN RN iw Corrections: (The following items were deleted from the chart) 17:43 16:29 09/09/2020 16:29 Discharged to Home. Impression: Pneumonia, unspecified organism. iw Condition is Fair. Forms are Medication Reconciliation Form, Thank You Letter, Antibiotic Education, Prescription Opioid Use. Follow up: Private Physician; When: 1 - 2 days; Reason: If symptoms return, Further diagnostic work-up, Recheck today's complaints, Continuance of care, Re-evaluation by your physician. Problem is new. Symptoms have improved. kdr
[2020-09-09 17:47] VITALS: BP 128/76; TEMP 98.3; O2SAT 97
[2020-09-09 21:44] LABS: Blood Morphology Comment NOT SEEN (NOT SEEN); Platelet Estimate ADEQ; White Blood Cell Scan OK (OK)
--- NOTE | 2020-09-11 16:14 | EKG ---
Test Date: 2020-09-09 Test Time: 15:28:59 [employer]: LEXUS MEASUREMENT RESULTS: Intervals: Rate: 68 HI: 172 QRSD: 86 QT: 424 QTc: 450 [place]: P: 67 HI: 172 QRS: 71 T: 63 INTERPRETIVE STATEMENTS: Normal sinus rhythm Normal ECG Compared to ECG 08/19/2020 19:14:09 No significant changes Electronically Signed On 09-11-20 16:09:54 SMALL ENGINE TECHNICIAN by Fredrick Johnson
== END 2020-09-09 17:43 | disposition home or self-care (01) ==
LOC: ER 13:34
DX: J18.9 Pneumonia, unspecified organism (principal)
CPT/HCPCS: 93005; 85025; 80048; 36415; 82140; 83735; 85610; 82947; 80076; 84484; 83880; 71045; 96374; 99284; J0696